=== PATIENT | female | born 1955 | race Two or more races ===

== ENCOUNTER 2024-02-04 18:36 | Emergency (ER) | payer MEDICAID, OTHER ==
[~2024-02-04] VITALS: Ht 157.5 cm; Wt 76.6 kg
[~2024-02-04 18:36] MED LIST: CALC-332 OR; FLUO20CA19 OR; LEV75T OR; NORVASC PO; TRIA37.587 PO
[2024-02-04 19:16] LABS: Basophils # (auto) 0 10 ^3/uL (0-0.2); Basophils % (auto) 0.2 % (0.0-2.0); Eosinophils # (auto) 0.1 10 ^3/uL (0-0.8); Eosinophils % (auto) 0.8 % (0.0-7.0); Hematocrit 46.2 % (36.0-46.0); Hemoglobin 15.7 g/dL (12.2-16.2); Lymphocytes # (auto) 1.1 10 ^3/uL (0.4-5.4); Lymphocytes % (auto) 8.2 % (10.0-50.0); Mean Corpuscular Hemoglobin 30.5 pg (28.0-32.0); Mean Corpuscular Volume 89.6 fL (80.0-100.0); Monocytes # (auto) 0.7 10 ^3/uL (0-1.3); Monocytes % (auto) 5.2 % (0.0-12.0); Neutrophils # (auto) 11.5 10 ^3/uL (1.6-8.6); Neutrophils % (auto) 85.6 % (37.0-80.0); Platelet Count (auto) 321 10^3/uL (140-450); Red Blood Cells 5.15 10^6/uL (4.0-5.20); Red Cell Distribution Width 13.5 % (11.8-14.3); White Blood Cell 13.5 10^3/uL (4.4-10.8)
[2024-02-04 19:17] LABS: Urine Bacteria FEW /hpf (None Seen); Urine Blood 3+ /uL (Negative); Urine Clarity Ex.Turbid (Clear); Urine Color Red (Yellow); Urine Protein, UAD 2+ (Negative); Urine Specific Gravity 1.021 (1.001-1.035); Urine Urobilinogen Normal (Negative); Urine WBC 2 /hpf (0 - 5)
[2024-02-04] MEDS: SODIUM CHLORIDE 0.9% 1,000 ML IV ONE (19:18)
[2024-02-04] MEDS: ONDANSETRON HCL 4 MG/2 ML VIAL IV ONE (19:22)
--- NOTE | 2024-02-04 19:22 | ED.PDOC ---
General HPI Comments A 68 year old female presents to the ED with a chief complaint of painful urination onset today about 4 hours ago. Patient states she has been experiencing cough, chills, body aches, nausea, vomiting, diarrhea for the past 5 days. She noticed painful urination today with a burning sensation as well as blood in urine. Patient has a past medical history of HTN, depression, thyroid. Denies fever, back pain, chest pain, shortness of breath, headache. No other symptoms or modifying factors present at this time. Chief Complaint: Urinary Time Seen by MD: 18:55 Primary Care Provider: NONE Reviewed notes: Medications, Allergies Allergies: Coded Allergies: NO KNOWN ALLERGIES (Unverified , 10/28/11) Home Meds Reported Medications Levothyroxine Sodium (Synthroid) 75 Mcg Tab, 75 MCG OR QAM 10/28/11 [Norvasc] No Conflict Check, 2.5 MG PO DAILY 10/28/11 Fluoxetine Hcl (Pmdd) (Fluoxetine) 20 Mg Cap, 20 MG OR DAILY 10/28/11 Hydrochlorothiazide W/Triamter (Dyazide 37.5/25MG) 1 Cap Cp, 1 CAP PO DAILY 10/28/11 Calcium Carbonate-Vitamin D (CALCIUM 500+D) 500 + Tab, 500 + OR BID 10/28/11 Information Source: Patient Mode of Arrival: Ambulatory Severity: Moderate Timing: Hours Duration: Since onset Prehospital treatment: None Symptoms: Dysuria, Hematuria History of: None Location: None associated signs and symptoms: Nausea, Vomiting, Dysuria, Hematuria Past Medical History PAST MEDICAL HISTORY: Depression, HTN, Thyroid Surgical History: , Hysterectomy 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 MANAGER Hx Family History Family History: No family hx of DM, No family hx of Heart julianne Social History Smoker: Non-Smoker Alcohol: Denies ETOH Use Drugs: Denies Drug Use Lives In: Home Constitutional: reports: chills, others (body aches ); denies: diaphoresis, fatigue, fever, malaise, sweats, weakness EENTM: denies: blurred vision, double vision, ear bleeding, ear discharge, ear drainage, ear pain, ear ringing, eye pain, eye redness, hearing loss, mouth pain, mouth swelling, nasal discharge, nose bleeding, nose congestion, nose pain, photophobia, tearing, throat pain, throat swelling, voice changes, others Respiratory: reports: cough; denies: hemoptysis, orthopnea, SOB at rest, shortness of breath, SOB with excertion, stridor, wheezing, others Cardiovascular: denies: chest pain, dizzy spells, diaphoresis, Dyspnea on exertion, edema, irregular heart beat, left arm pain, lightheadedness, palpitations, PND, syncope, others Gastrointestinal: reports: diarrhea, nausea, vomiting; denies: abdomen distended, abdominal pain, blood streaked bowels, constipated, dysphagia, difficulty swallowing, hematemesis, melena, poor appetite, poor fluid intake, rectal bleeding, rectal pain, others Genitourinary: reports: burning, dysuria, hematuria; denies: abnormal vagina bleeding, dyspareunia, flank pain, frequency, incontinence, pain, , vagina discharge, urgency, others Neurological: denies: dizziness, fainting, headache, left sided numbness, left sided weakness, numbness, paresthesia, pre-existing deficit, right sided numbness, right sided weakness, seizure, speech problems, tingling, tremors, weakness, others Musculoskeletal: denies: back pain, gout, joint pain, joint swelling, muscle pain, muscle stiffness, neck pain, others Integumetry: denies: bruises, change in color, change in hair/nails, dryness, laceration, lesions, lumps, rash, wounds, others Allergic/Immunocompromised: denies: Difficulty Healing, Frequent Infections, Hives, Itching, others Hematologic/Lymphatic: denies: anemia, blood clots, easy bleeding, easy bruising, swollen glands, others Endocrine: denies: excessive hunger, excessive sweating, excessive thirst, excessive urination, flushing, intolerance to cold, intolerance to heat, unexplained weight gain, unexplained weight loss, others Psychiatric: denies: anxiety, bipolar disorder, depression, hopeless, panic disorder, schizophrenia, sleepless, suicidal, others All Other Systems: Reviewed and Negative Physical Exam General Appearance: No Apparent Distress, Normal HEENT: Normal ENT Inspection, Pharynx Normal, TMs Normal Neck: Full Range of Motion, Non-Tender, Normal, Normal Inspection Respiratory: Chest Non-Tender, Lungs Clear, No Accessory Muscle Use, No Respiratory Distress, Normal Breath Sounds Cardiovascular: No Edema, No JVD, No Murmur, No Gallop, Normal Peripheral Pulses, Regular Rate/Rhythm Breast Exam: Deferred Gastrointestinal: No Organomegaly, Non Tender, No Pulsatile Mass, Normal Bowel Sounds, Soft Genitalia: Deferred Pelvic: Deferred Rectal: Deferred Extremities: No calf tenderness, Normal capillary refill, Normal inspection, Normal range of motion, Non-tender, No pedal edema Musculoskeletal : Apperance: Normal Neurologic: Alert, metal caster II-XII nml as Tested, No Motor Deficits, Normal Affect, Normal Mood, No Sensory Deficits Cerebellar Function: Normal Reflexes: Normal Skin: Dry, Normal Color, Warm Lymphatic: No Adenopathy Was a procedure done? Was a procedure done?: No Differential Diagnosis Kidney stone (Female): N/A Kidney stone (Male): N/A Penile/Scrotal: N/A Urinary Problem (Male): N/A Urinary Problem (Female): Pyelonephritis, Urinary retention, Urolithiasis, UTI X-Ray, Labs, Meds, VS Vital Signs Date Time Temp Pulse Resp B/P (MAP) Pulse Ox O2 Delivery O2 Flow Rate FiO2 02/04/24 20:04 71 16 150/60 (90) 96 02/04/24 20:04 71 16 96 02/04/24 20:03 71 16 150/60 02/04/24 19:26 96 18 168/59 02/04/24 19:18 96 18 168/59 (95) 96 02/04/24 18:50 98.6 96 20 176/92 (120) 96 Lab Test 02/04/24 18:56 02/04/24 18:46 Range/Units White Blood Count 13.5 H 4.4-10.8 10^3/uL Red Blood Count 5.15 4.0-5.20 10^6/uL Hemoglobin 15.7 12.2-16.2 g/dL Hematocrit 46.2 H 36.0-46.0 % Mean Corpuscular Volume 89.6 80.0-100.0 fL Mean Corpuscular Hemoglobin 30.5 28.0-32.0 pg Mean Corpuscular Hemoglobin Concent 34.0 32.0-36.0 g/dL Red Cell Distribution Width 13.5 11.8-14.3 % Platelet Count 321 140-450 10^3/uL Mean Platelet Volume 7.5 6.9-10.8 fL Neutrophils (%) (Auto) 85.6 H 37.0-80.0 % Lymphocytes (%) (Auto) 8.2 L 10.0-50.0 % Monocytes (%) (Auto) 5.2 0.0-12.0 % Eosinophils (%) (Auto) 0.8 0.0-7.0 % Basophils (%) (Auto) 0.2 0.0-2.0 % Neutrophils # (Auto) 11.5 H 1.6-8.6 10 ^3/uL Lymphocytes # (Auto) 1.1 0.4-5.4 10 ^3/uL Monocytes # (Auto) 0.7 0-1.3 10 ^3/uL Eosinophils # (Auto) 0.1 0-0.8 10 ^3/uL Basophils # (Auto) 0 0-0.2 10 ^3/uL Nucleated Red Blood Cells 0.0 % Sodium Level 139 136-145 mmol/L Potassium Level 3.4 L 3.5-5.1 mmol/L Chloride Level 103 98-107 mmol/L Carbon Dioxide Level 27 20-31 mmol/L Anion Gap 9 5-15 Blood Urea Nitrogen 9 9-23 mg/dL Creatinine 0.73 0.550-1.02 mg/dL Glomerular Filtration Rate Calc 91 >90 mL/min BUN/Creatinine Ratio 12.3 10.0-20.0 Serum Glucose 162 H 74-106 mg/dL Calcium Level 9.6 8.7-10.4 mg/dL Urine Color Red H Yellow Urine Clarity Ex.turbid Clear Urine pH 6.0 5.0-9.0 Urine Specific [place] 1.021 1.001-1.035 Urine Protein 2+ H Negative Urine Ketones Trace Negative Urine Blood 3+ H Negative /uL Urine Nitrite Negative Negative Urine Bilirubin Negative Negative Urine Urobilinogen Normal Negative mg/dL Urine Leukocyte Esterase 3+ Negative /uL Urine RBC 6 0 - 4 /hpf Urine WBC 2 0 - 5 /hpf Urine Squamous Epithelial Cells None seen <5 /hpf Urine Bacteria Few H None Seen /hpf Urine Glucose Normal Normal mg/dL Current Medications Medications (Trade) Dose Ordered Sig/Jaguar Route Start Time Stop Time Status Last Admin Sodium Chloride 1,000 ml @ 1,000 mls/hr Q1H ONCE IV 02/04/24 19:00 02/04/24 19:59 DC 02/04/24 19:18 Ondansetron HCl (Zofran) 4 mg ONCE ONCE IV 02/04/24 19:00 02/04/24 19:01 DC 02/04/24 19:22 Morphine Sulfate 4 mg ONCE ONCE IV 02/04/24 19:00 02/04/24 19:01 DC 02/04/24 19:26 Ceftriaxone Sodium 50 ml @ 100 mls/hr ONCE ONCE IV 02/04/24 20:15 02/04/24 20:44 DC 02/04/24 20:18 Time of 1ST Reevaluation: 19:25 Reevaluation 1ST: Unchanged Patient Education/Counseling: Diagnosis, Treatment, Prognosis Family Education/Counseling: No Family Present Additional Information I reviewed the following notes from patient's past medical encounters: The following tests were ordered, and results were reviewed by me:CBC, CMP, UA I discussed treatment and results with medical personnel and: patient Departure 1 Departure Time of Disposition: 21:42 (Patient presented with abdominal pain that was concerning for possible appendicits, gastritis, cholecystitis, colitis, gastroenteritis, or orther possible surgical emergency. Data: 1. I ordered and reviewed the result of at least 3 labs including a CBC, BMP, and Urinalysis. 2. I independently interpreted the following tests: CT Abdoment and Pelvis is conc erning for uncomplicated diverticulitis .Risk:This patient has a high risk of morbidity due to further diagnostic testing or treatment and may suffer from an acute abdominal process disorder. Fortunately workup reveals uncomplicated diverticulitis and patient can be safely discharged to home with outpatient follow up.) Impression: Primary Impression: Diverticulitis Disposition: HOME / SELF CARE / HOMELESS Condition: Stable Additional Instructions: You have diverticulitis. This is an infection of your intestines. You were prescribed antibiotics. Please take as directed. For pain you can take: 8am: Tylenol 1000mg Noon: Ibuprofen 400mg with food 4pm: Tylenol 1000mg 8pm: Ibuprofen 400mg with food. You should follow up with your doctor within one week. Please call for an appointment. If your symptoms worsen or you have any other concerns then please return to the ER. e-Prescriptions Amoxicillin & Pot Clavulanate (AUGMENTIN TABLET) 875 Mg Tb 875 MG PO BID for 5 Days, #10 TAB Prov: CHI KRISHNA MD 02/04/24 Discharged With: Self Critical Care Note Critical Care Time?: No Stability Stability form required: No I personally scribed for CHI KRISHNA MD ([email or web address]) on 02/04/24 at 19:22. Electronically submitted by Dilcia Whiteside ([email or web address]). I personally scribed for CHI KRISHNA MD ([email or web address]) on 02/04/24 at 19:46. Electronically submitted by Dilcia Whiteside ([email or web address]). CHI KRISHNA MD Feb 04, 2024 19:22
[2024-02-04] MEDS: MORPHINE SULFATE 4 MG/ML SYR/VIAL IV ONE (19:26)
[2024-02-04 19:28] LABS: Chloride 103 mmol/L (98-107); Sodium 139 mmol/L (136-145)
[2024-02-04 19:29] LABS: Anion Gap 9 (5-15); Calcium 9.6 mg/dL (8.7-10.4); Carbon Dioxide 27 mmol/L (20-31)
[2024-02-04 19:34] LABS: BUN/Creatinine Ratio 12.3 (10.0-20.0)
[2024-02-04 19:42] LABS: Blood Urea Nitrogen 9 mg/dL (9-23); Glucose 162 mg/dL (74-106); Potassium 3.4 mmol/L (3.5-5.1)
[2024-02-04 20:04] VITALS: BP 150/60; PULSE 71; RESP 16; O2SAT 96
[2024-02-04] MEDS: cefTRIAXone 1GM/50ML D5W 50 ML IV ONE (20:18)
--- NOTE | 2024-02-04 21:33 | DVH ---
Exam: CT CT AB PEL WO CON-NO ORAL OR IV History: left flank pain and hematuria Comparison Study: None available at time of dictation. TECHNIQUE: Multidetector CT of the abdomen was performed from lung bases to pubic symphysis. Imaging was performed without IV contrast. Axial, coronal and sagittal multiplanar reformats were obtained fr om the axial data set by the technologist. Radiation Dose Information: CT Dose: CTDI volume is 11.21 mGy. Dose-length product is 621.32 mGy*cm FINDINGS: Evaluation of solid organs is limited due to lack of intravenous contrast use. Findings: Lung Bases: No acute or significant lung base finding. Normal heart size. No pleural or pericardial effusion. Liver: The liver is normal in size. No focal lesions. Gallbladder and Biliary Tree: Gallbladder has been surgically removed. Spleen: Unremarkable Pancreas: The pancreas is grossly normal in appearance. Adrenal Glands: Unremarkable Kidneys: Kidneys are grossly normal without calculi or hydronephrosis. Bladder: Grossly unremarkable for degree of distention. Bowel: The stomach is grossly normal in appearance. Sigmoid diverticulosis with no free air or free f luid however there is some stranding in the sigmoid fat suggesting diverticulitis.. The appendix is not visualized; however, no secondary findings of acute appendicitis identified. Ascites: Absent Lymphadenopathy: No mesenteric, retroperitoneal or periportal lymphadenopathy. Abdominal Wall and Mesentery: Unremarkable. Vasculature: The visualized abdominal aorta is normal in size and caliber. Evaluation of abdominal a nd pelvic vessels is limited due to lack of intravenous contrast. Pelvic Organs: Surgical clips right adnexa. Musculoskeletal: No aggressive focal bony lesions, acute fractures or dislocation. Soft tissues: Unremarkable IMPRESSION: 1. Sigmoid diverticulitis with no free air or free fluid. No abscess present at this time. 2. Surgical clips in the right adnexa. 3. Gallbladder has been surgically removed. Radiation optimization: All CT scans at this facility use at least one of these dose optimization sharan hniques: automated exposure control mA and/or kV adjustment per patient size (includes targeted exam s where dose is matched to clinical indication) or iterative reconstruction.
[2024-02-04] MEDS ORDERED: AUG875T PO (21:50)
== END 2024-02-04 23:01 | disposition home or self-care (01) ==
LOC: ER 18:36
DX: K57.32 Diverticulitis of large intestine without perforation or abscess without bleeding (principal); R05.9 Cough, unspecified; I10 Essential (primary) hypertension; F32.A Depression, unspecified; Z90.710 Acquired absence of both cervix and uterus; Z98.890 Other specified postprocedural states; Z79.899 Other long term (current) drug therapy
CPT/HCPCS: 36415; 74176; 80048; 81001; 85025; 96361; 96365; 96375; 99285; J0696; J2270; J2405; J7030

== ENCOUNTER 2024-10-17 14:22 | Emergency (ER) | payer MEDICAID, OTHER ==
[~2024-10-17] VITALS: Ht 152.4 cm; Wt 76.7 kg
[~2024-10-17 14:22] MED LIST changes: +AUG875T PO
[2024-10-17 14:24] VITALS: TEMP 98.8
[2024-10-17 14:56] VITALS: BP 155/79; PULSE 78; RESP 18; O2SAT 95
--- NOTE | 2024-10-17 15:08 | ED.PDOC ---
Eye-HPI HPI Comments 69-year-old female with PMHx TSH presents with a chief complaint of eyelid swelling bilaterally. Patients upper eyelids are both swollen and her conjunctiva are red in color. Patient has more swelling to the left upper eyelid compared to the right eyelid. Patient is able to see clearly and denies any changes to her vision. Patient reports that swelling came on spontaneously and denies any precipitating factors. Chief Complaint: Eye Problem Time Seen by MD: 14:52 Primary Care Provider: NONE Reviewed Notes: Medications, Allergies Allergies: Coded Allergies: NO KNOWN ALLERGIES (Unverified , 10/28/11) Home Meds Active Scripts Amoxicillin & Pot Clavulanate (AUGMENTIN TABLET) 875 Mg Tb, 875 MG PO BID for 5 Days, #10 TAB Prov:CHI KRISHNA MD 02/04/24 Reported Medications Levothyroxine Sodium (Synthroid) 75 Mcg Tab, 75 MCG OR QAM 10/28/11 [Norvasc] No Conflict Check, 2.5 MG PO DAILY 10/28/11 Fluoxetine Hcl (Pmdd) (Fluoxetine) 20 Mg Cap, 20 MG OR DAILY 10/28/11 Hydrochlorothiazide W/Triamter (Dyazide 37.5/25MG) 1 Cap Cp, 1 CAP PO DAILY 10/28/11 Calcium Carbonate-Vitamin D (CALCIUM 500+D) 500 + Tab, 500 + OR BID 10/28/11 Information Source: Patient Mode of Arrival: Ambulatory Timing: Days Duration: Since onset Prehospital treatment: None Quality: Pain Eye Location: Left, Upper Lids: Red, Swelling Conjunctiva: Normal Cornea: Normal Pupils: Normal Past Medical History PAST MEDICAL HISTORY: Depression, HTN, Thyroid Surgical History: , Hysterectomy 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 Family History Family History: No family hx of DM, No family hx of Heart julianne Social History Smoker: Non-Smoker Alcohol: Denies ETOH Use Drugs: Denies Drug Use Lives In: Home Constitutional: denies: chills, diaphoresis, fatigue, fever, malaise, sweats, weakness, others EENTM: reports: eye pain, eye redness; denies: blurred vision, double vision, ear bleeding, ear discharge, ear drainage, ear pain, ear ringing, hearing loss, mouth pain, mouth swelling, nasal discharge, nose bleeding, nose congestion, nose pain, photophobia, tearing, throat pain, throat swelling, voice changes, others Respiratory: denies: cough, hemoptysis, orthopnea, SOB at rest, shortness of breath, SOB with excertion, stridor, wheezing, others Cardiovascular: denies: chest pain, dizzy spells, diaphoresis, Dyspnea on exertion, edema, irregular heart beat, left arm pain, lightheadedness, palpitations, PND, syncope, others Gastrointestinal: denies: abdomen distended, abdominal pain, blood streaked bowels, constipated, diarrhea, dysphagia, difficulty swallowing, hematemesis, melena, nausea, poor appetite, poor fluid intake, rectal bleeding, rectal pain, vomiting, others Genitourinary: denies: abnormal vagina bleeding, burning, dyspareunia, dysuria, flank pain, frequency, hematuria, incontinence, pain, , vagina discharge, urgency, others Neurological: denies: dizziness, fainting, headache, left sided numbness, left sided weakness, numbness, paresthesia, pre-existing deficit, right sided numbness, right sided weakness, seizure, speech problems, tingling, tremors, weakness, others Musculoskeletal: denies: back pain, gout, joint pain, joint swelling, muscle pain, muscle stiffness, neck pain, others Integumetry: denies: bruises, change in color, change in hair/nails, dryness, laceration, lesions, lumps, rash, wounds, others Allergic/Immunocompromised: denies: Difficulty Healing, Frequent Infections, Hives, Itching, others Hematologic/Lymphatic: denies: anemia, blood clots, easy bleeding, easy bruising, swollen glands, others Endocrine: denies: excessive hunger, excessive sweating, excessive thirst, excessive urination, flushing, intolerance to cold, intolerance to heat, unexplained weight gain, unexplained weight loss, others Psychiatric: denies: anxiety, bipolar disorder, depression, hopeless, panic disorder, schizophrenia, sleepless, suicidal, others All Other Systems: Reviewed and Negative Physical Exam General Appearance: No Apparent Distress, Obese HEENT: Normal ENT Inspection, PERRL/EOMI, Pharynx Normal, TMs Normal, Other (With bilateral conjunctivitis and stye to the left side upper lid) Neck: Full Range of Motion, Non-Tender, Normal, Normal Inspection Respiratory: Chest Non-Tender, Lungs Clear, No Accessory Muscle Use, No Respiratory Distress, Normal Breath Sounds Cardiovascular: No Edema, No JVD, No Murmur, No Gallop, Normal Peripheral Pulses, Regular Rate/Rhythm Breast Exam: Deferred Gastrointestinal: No Organomegaly, Non Tender, No Pulsatile Mass, Normal Bowel Sounds, Soft Genitalia: Deferred Pelvic: Deferred Rectal: Deferred Extremities: No calf tenderness, Normal capillary refill, Normal inspection, Normal range of motion, Non-tender, No pedal edema Musculoskeletal : Apperance: Normal Neurologic: Alert, consulting manager II-XII nml as Tested, No Motor Deficits, Normal Affect, Normal Mood, No Sensory Deficits Cerebellar Function: Normal Reflexes: Normal Skin: Dry, Normal Color, Warm Peripheral Pulses: 1+ carotid (R), 1+ carotid (L) Lymphatic: No Adenopathy Was a procedure done? Was a procedure done?: No EENT DIFF Eye: Conjunctivitis, Bacterial, Hordeolum (stye) Ear: N/A Nose: N/A Mouth: N/A Sore Throat: N/A X-Ray, Labs, Meds, VS Vital Signs Date Time Temp Pulse Resp B/P (MAP) Pulse Ox O2 Delivery O2 Flow Rate FiO2 10/17/24 14:56 75 18 155/79 (104) 95 10/17/24 14:56 78 18 95 Room Air 10/17/24 14:24 98.8 77 15 151/95 95 98.8 X-Ray, Labs, Meds, VS Comment Course in the [employer] eventful patient came in with bilateral conjunctivitis in his stye to the left upper lid Patient will be treated adequately and discharged home Time of 1ST Reevaluation: 15:22 Reevaluation 1ST: Unchanged Reevaluation 2ND: Unchanged Consultation: PCP Patient Education/Counseling: Diagnosis, Treatment, Need For Follow Up Family Education/Counseling: Diagnosis, Treatment, Need For Follow Up SEPSIS Sepsis Screen Date sepsis recognized/suspect: Oct 17, 2024 Time Sepsis recognized/suspect: 1425 Recent Procedure: No On Antibiotic Therapy: No (N) Respiratory Rate >20: No (T) Heart Rate >90: No Temp<36 C (96.8 F) or >38.3 C: No SBP <90 or MAP <65 mmHG: No New Acute Mental Status Change: No Is the patient on CPAP, BIPAP,: No Vital Signs Date Time Temp Pulse Resp B/P (MAP) Pulse Ox O2 Delivery O2 Flow Rate FiO2 10/17/24 14:56 75 18 155/79 (104) 95 10/17/24 14:56 78 18 95 Room Air 10/17/24 14:24 98.8 77 15 151/95 95 98.8 Departure 1 Departure Time of Disposition: 15:12 Impression: Primary Impression: Conjunctivitis Qualified Codes: H10.33 - Unspecified acute conjunctivitis, bilateral Additional Impression: Hordeolum externum left upper eyelid Disposition: HOME / SELF CARE / HOMELESS Condition: Fair Additional Instructions: Discharge Note: Drink plenty of fluids. Follow up with your primary Dr. Take your prescriptions as ordered. If your condition becomes worse call and follow up with your primary DrBonnie for instructions or return to the ER if needed. Thank you for visiting [facility]. e-Prescriptions Cefdinir (Cefdinir) 300 Mg Cap 1 CAP PO BID for 7 Days, #14 CAP Prov: ELIZABETH OQUENDO MD 10/17/24 [id number]-Nzekbtaw (MAXITROL 0.1% OPTHALMIC SUSPENSION) [address] 1 DROP OP BID for 5 Days, #5 CC Prov: ELIZABETH OQUENDO MD 10/17/24 Discharged With: Self Critical Care Note Critical Care Time?: No Stability Stability form required: No Heart Score Heart Score: Heart Score Response (Comments) Value History N/A 0 EKG N/A 0 Age >65 2 Risk Factors >3 or Hx ASHD 2 Troponin N/A 0 Total 4 I personally scribed for ELIZABETH OQUENDO MD ([email or web address]) on 10/17/24 at 15:08. Electronically submitted by Grant Greer ([email or web address]). ELIZABETH OQUENDO MD Oct 17, 2024 15:08
[2024-10-17] MEDS ORDERED: MAX5OPS OP (15:17)
[2024-10-17] MEDS ORDERED: CEFD300C2 PO (15:17)
== END 2024-10-17 15:28 | disposition home or self-care (01) ==
LOC: ER 14:22
DX: H00.014 Hordeolum externum left upper eyelid (principal); H10.9 Unspecified conjunctivitis; I10 Essential (primary) hypertension; E03.9 Hypothyroidism, unspecified; F32.A Depression, unspecified; Z79.899 Other long term (current) drug therapy; Z90.710 Acquired absence of both cervix and uterus; Z98.890 Other specified postprocedural states

== ENCOUNTER 2024-10-21 12:27 | Inpatient (IN) | payer OTHER ==
[~2024-10-21] VITALS: Ht 157.5 cm; Wt 78.0 kg
[~2024-10-21 12:27] MED LIST changes: +CEFD300C2 PO; +MAX5OPS OP
--- NOTE | 2024-10-21 12:43 | ECG ---
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
[2024-10-21 13:08] LABS: Hematocrit 44.5 % (36.0-46.0); Hemoglobin 15.2 g/dL (12.2-16.2); Mean Corpuscular Hemoglobin 30.3 pg (28.0-32.0); Mean Corpuscular Volume 88.7 fL (80.0-100.0); Nucleated Red Blood Cells % 0.1 %
[2024-10-21 13:16] LABS: Chloride 106 mmol/L (98-107); Potassium 3.7 mmol/L (3.5-5.1); Sodium 143 mmol/L (136-145)
[2024-10-21 13:18] LABS: Anion Gap 8 (5-15); Calcium 9.6 mg/dL (8.7-10.4); Carbon Dioxide 29 mmol/L (20-31)
--- NOTE | 2024-10-21 13:21 | DVH ---
INDICATION: htn TECHNIQUE: Frontal view of the chest. COMPARISON: None FINDINGS: . The heart and mediastinal contours are grossly unremarkable. There is no evidence of pleural disea se. The lungs are clear. The bony structures of the chest are intact without fracture. IMPRESSION: 1. No evidence of acute disease.
--- NOTE | 2024-10-21 13:21 | DVH ---
EXAM: CT HEAD WITHOUT CONTRAST INDICATION: htn TECHNIQUE: CT images of the head were obtained without administration of IV contrast. CT scans at [facility] use dose modulation, iterative reconstruction, and/or weight based dosing when appropriate to reduce radiation dose to as low as reasonably achievable. COMPARISON: None FINDINGS: PARENCHYMA: No acute hemorrhage. There is no mass effect, midline shift, or herniation. There is pres ervation of the boss white differentiation. VENTRICLES: No hydrocephalus. EXTRA-AXIAL SPACES: No extra-axial fluid collections. OTHER: The bony structures are intact. Visualized portions of the paranasal sinuses and mastoid air cells are clear. IMPRESSION: 1. No CT evidence of an acute intracranial abnormality.
[2024-10-21 13:23] LABS: BUN/Creatinine Ratio 18.7 (10.0-20.0); Blood Urea Nitrogen 14 mg/dL (9-23); Glucose 97 mg/dL (74-106)
--- NOTE | 2024-10-21 15:04 | ED.PDOC ---
History of Present Illness HPI Comments 69 y/o F, with PMHx of HTN, depression, and thyroid disease presents to the ED for CC of hypertension. Patient reports, she had a regular scheduled appointment with her PCP for an eye infection, when she was relayed to the ED d/t elevated SBP in the 200's. Patient relays, that she was taken off her blood pressure medication [id number] ago; has not taken anything for her blood pressure since. Upon arrival to the ED, patient's blood pressure read at 209/76mmHg. Patient denies blurred vision, headache with aura, nausea, or vomiting. No other symptoms or modifying factors are present at this time. Chief Complaint: High Blood Pressure Time Seen by MD: 14:50 Primary Care Provider: NONE Reviewed Notes: Nurses Notes, Medications, Allergies Allergies: Coded Allergies: NO KNOWN ALLERGIES (Unverified , 10/28/11) Home Meds Active Scripts Cefdinir (Cefdinir) 300 Mg Cap, 1 CAP PO BID for 7 Days, #14 CAP Prov:ELIZABETH OQUENDO MD 10/17/24 Xhymakuq-Gehdaj-Nfhgksjx (MAXITROL 0.1% OPTHALMIC SUSPENSION) [address], 1 DROP OP BID for 5 Days, #5 CC Prov:ELIZABETH OQUENDO MD 10/17/24 Amoxicillin & Pot Clavulanate (AUGMENTIN TABLET) 875 Mg Tb, 875 MG PO BID for 5 Days, #10 TAB Prov:CHI KRISHNA MD 02/04/24 Reported Medications Levothyroxine Sodium (Synthroid) 75 Mcg Tab, 75 MCG OR QAM 10/28/11 [Norvas] No Conflict Check, 2.5 MG PO DAILY 10/28/11 Fluoxetine Hcl (Pmdd) (Fluoxetine) 20 Mg Cap, 20 MG OR DAILY 10/28/11 Hydrochlorothiazide W/Triamter (Dyazide 37.5/25MG) 1 Cap Cp, 1 CAP PO DAILY 10/28/11 Calcium Carbonate-Vitamin D (CALCIUM 500+D) 500 + Tab, 500 + OR BID 10/28/11 Information Source: Patient, Relative (Child) Mode of Arrival: Ambulatory Severity: Moderate Timing: Hours Duration: Since onset Prehospital treatment: None Past Medical History PAST MEDICAL HISTORY: Depression, HTN, Thyroid Surgical History: , Hysterectomy 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 Family History Family History: No family hx of DM, No family hx of Heart julianne Social History Smoker: Non-Smoker Alcohol: Denies ETOH Use Drugs: Denies Drug Use Lives In: Home Constitutional: denies: chills, diaphoresis, fatigue, fever, malaise, sweats, weakness, others EENTM: denies: blurred vision, double vision, ear bleeding, ear discharge, ear drainage, ear pain, ear ringing, eye pain, eye redness, hearing loss, mouth pain, mouth swelling, nasal discharge, nose bleeding, nose congestion, nose pain, photophobia, tearing, throat pain, throat swelling, voice changes, others Respiratory: denies: cough, hemoptysis, orthopnea, SOB at rest, shortness of breath, SOB with excertion, stridor, wheezing, others Cardiovascular: denies: chest pain, dizzy spells, diaphoresis, Dyspnea on exe rtion, edema, irregular heart beat, left arm pain, lightheadedness, palpitations, PND, syncope, others Gastrointestinal: denies: abdomen distended, abdominal pain, blood streaked bowels, constipated, diarrhea, dysphagia, difficulty swallowing, hematemesis, melena, nausea, poor appetite, poor fluid intake, rectal bleeding, rectal pain, vomiting, others Genitourinary: denies: abnormal vagina bleeding, burning, dyspareunia, dysuria, flank pain, frequency, hematuria, incontinence, pain, , vagina discharge, urgency, others Neurological: denies: dizziness, fainting, headache, left sided numbness, left sided weakness, numbness, paresthesia, pre-existing deficit, right sided numbness, right sided weakness, seizure, speech problems, tingling, tremors, weakness, others Musculoskeletal: denies: back pain, gout, joint pain, joint swelling, muscle pain, muscle stiffness, neck pain, others Integumetry: denies: bruises, change in color, change in hair/nails, dryness, laceration, lesions, lumps, rash, wounds, others Allergic/Immunocompromised: denies: Difficulty Healing, Frequent Infections, Hives, Itching, others Hematologic/Lymphatic: denies: anemia, blood clots, easy bleeding, easy bruising, swollen glands, others Endocrine: denies: excessive hunger, excessive sweating, excessive thirst, excessive urination, flushing, intolerance to cold, intolerance to heat, unexplained weight gain, unexplained weight loss, others Psychiatric: denies: anxiety, bipolar disorder, depression, hopeless, panic disorder, schizophrenia, sleepless, suicidal, others All Other Systems: Reviewed and Negative Physical Exam General Appearance: No Apparent Distress, Normal HEENT: Normal ENT Inspection, Pharynx Normal Neck: Full Range of Motion, Non-Tender, Normal, Normal Inspection Respiratory: Chest Non-Tender, Lungs Clear, No Accessory Muscle Use, No Respir atory Distress, Normal Breath Sounds Cardiovascular: No Edema, No Murmur, No Gallop, Normal Peripheral Pulses, Regular Rate/Rhythm Breast Exam: Deferred Gastrointestinal: No Organomegaly, Non Tender, No Pulsatile Mass, Normal Bowel Sounds, Soft Genitalia: Deferred Pelvic: Deferred Rectal: Deferred Extremities: No calf tenderness, Normal capillary refill, Normal inspection, Normal range of motion, Non-tender, No pedal edema Musculoskeletal : Apperance: Normal Neurologic: Alert, supervisor compressed yeast II-XII nml as Tested, No Motor Deficits, Normal Affect, Normal Mood, No Sensory Deficits Cerebellar Function: Normal Reflexes: Normal Skin: Dry, Normal Color, Warm Lymphatic: No Adenopathy Was a procedure done? Was a procedure done?: No Differential Dx Considerations may include: HYPERTENSIVE URGENCY, HYPERTENSIVE CRISIS X-Ray, Labs, Meds, VS Vital Signs Date Time Temp Pulse Resp B/P (MAP) Pulse Ox O2 Delivery O2 Flow Rate FiO2 10/21/24 15:16 209/76 10/21/24 14:01 98.4 63 22 209/76 (120) 95 98.4 10/21/24 12:38 62 10/21/24 12:27 98.3 66 16 190/84 96 98.3 Lab Test 10/21/24 13:39 10/21/24 12:55 Range/Units Troponin I High Sensitivity 11 9 </=34 ng/L White Blood Count 7.4 4.4-10.8 10^3/uL Red Blood Count 5.02 4.0-5.20 10^6/uL Hemoglobin 15.2 12.2-16.2 g/dL Hematocrit 44.5 36.0-46.0 % Mean Corpuscular Volume 88.7 80.0-100.0 fL Mean Corpuscular Hemoglobin 30.3 28.0-32.0 pg Mean Corpuscular Hemoglobin Concent 34.1 32.0-36.0 g/dL Red Cell Distribution Width 13.7 11.8-14.3 % Platelet Count 293 140-450 10^3/uL Mean Platelet Volume 7.6 6.9-10.8 fL Neutrophils (%) (Auto) 47.6 37.0-80.0 % Lymphocytes (%) (Auto) 39.8 10.0-50.0 % Monocytes (%) (Auto) 8.6 0.0-12.0 % Eosinophils (%) (Auto) 3.1 0.0-7.0 % Basophils (%) (Auto) 0.9 0.0-2.0 % Neutrophils # (Auto) 3.5 1.6-8.6 10 ^3/uL Lymphocytes # (Auto) 2.9 0.4-5.4 10 ^3/uL Monocytes # (Auto) 0.6 0-1.3 10 ^3/uL Eosinophils # (Auto) 0.2 0-0.8 10 ^3/uL Basophils # (Auto) 0.1 0-0.2 10 ^3/uL Nucleated Red Blood Cells 0.1 % Sodium Level 143 136-145 mmol/L Potassium Level 3.7 3.5-5.1 mmol/L Chloride Level 106 98-107 mmol/L Carbon Dioxide Level 29 20-31 mmol/L Anion Gap 8 5-15 Blood Urea Nitrogen 14 9-23 mg/dL Creatinine 0.75 0.550-1.02 mg/dL Glomerular Filtration Rate Calc 87 >90 mL/min BUN/Creatinine Ratio 18.7 10.0-20.0 Serum Glucose 97 74-106 mg/dL Calcium Level 9.6 8.7-10.4 mg/dL Current Medications Medications (Trade) Dose Ordered Sig/Jaguar Route Start Time Stop Time Status Last Admin Hydralazine HCl (Apresoline Injection) 20 mg ONCE ONCE IV 10/21/24 15:00 10/21/24 15:01 DC 10/21/24 15:[address] [address] Ph: [phone] DIAGNOSTIC IMAGING Diagnostic Imaging Report : [id number] Signed PATIENT: JOSIAH HURTADOSHUCT: [id number] UNIT: [id number] : 1955 LOC: ER ROOM / BED: / AGE / SEX: 69 / F ADM STATUS: REG ER SERVICE 1241 ORDERING PHYSICIAN: HCI KRISHNA MD PROCEDURE(s): CXRP - CHEST PORTABLE REASON: htn ORDER NUMBER(s): [id number], ACCESSION NUMBER(s): [id number] INDICATION: htn TECHNIQUE: Frontal view of the chest. COMPARISON: None FINDINGS: . The heart and mediastinal contours are grossly unremarkable. There is no evidence of pleural disease. The lungs are clear. The bony structures of the chest are intact without fracture. IMPRESSION: 1. No evidence of acute disease. ATED BY: HEATH BAL MD DICTATED DATE/TIME: 10/21/241318 SIGNED BY: HEATH BAL MD SIGNED DATE/TIME: 10/21/241318 CC: [place] [id number] Ph: [phone] DIAGNOSTIC IMAGING Diagnostic Imaging Report : [id number] Signed PATIENT: AMY HURTADOCT: [id number] UNIT: [id number] : 1955 LOC: ER ROOM / BED: / AGE / SEX: 69 / F ADM STATUS: REG ER SERVICE 1241 ORDERING PHYSICIAN: CHI KRISHNA MD PROCEDURE(s): HWOCT - HEAD WITHOUT CONTRAST REASON: htn ORDER NUMBER(s): [id number], ACCESSION NUMBER(s): [id number] EXAM: CT HEAD WITHOUT CONTRAST INDICATION: htn TECHNIQUE: CT images of the head were obtained without administration of IV contrast. CT scans at this facility use dose modulation, iterative reconstruction, and/or weight based dosing when appropriate to reduce radiation dose to as low as reasonably achievable. COMPARISON: None FINDINGS: PARENCHYMA: No acute hemorrhage. There is no mass effect, midline shift, or herniation. There is preservation of the boss white differentiation. VENTRICLES: No hydrocephalus. EXTRA-AXIAL SPACES: No extra-axial fluid collections. OTHER: The bony structures are intact. Visualized portions of the paranasal sinuses and mastoid air cells are clear. IMPRESSION: 1. No CT evidence of an acute intracranial abnormality. ATED BY: HEATH BAL MD DICTATED DATE/TIME: 10/21/241318 SIGNED BY: HEATH BAL MD SIGNED DATE/TIME: 10/21/241318 CC: Time of 1ST Reevaluation: 15:10 Reevaluation 1ST: Unchanged Patient Education/Counseling: Diagnosis, Treatment Family Education/Counseling: Diagnosis, Treatment SEPSIS Sepsis Screen Date sepsis recognized/suspect: Oct 21, 2024 Time Sepsis recognized/suspect: 1226 Recent Procedure: No On Antibiotic Therapy: No Respiratory Rate >20: No Heart Rate >90: No Temp<36 C (96.8 F) or >38.3 C: No SBP <90 or MAP <65 mmHG: No New Acute Mental Status Change: No Is the patient on CPAP, BIPAP,: No Physician Orders Urinalysis (10/21/24 12:41) Chest Portable (10/21/24 12:41) Head Without Contrast (10/21/24 12:41) Troponin-I Hs (10/21/24 15:41) Electrocardigram (10/21/24 13:41) Electrocardigram (10/21/24 15:41) Vital Signs Date Time Temp Pulse Resp B/P (MAP) Pulse Ox O2 Delivery O2 Flow Rate FiO2 10/21/24 15:16 209/76 10/21/24 14:01 98.4 63 22 209/76 (120) 95 98.4 10/21/24 12:38 62 10/21/24 12:27 98.3 66 16 190/84 96 98.3 Laboratory Tests Test 10/21/24 12:55 White Blood Count 7.4 10^3/uL (4.4-10.8) Medications Medications Dose Ordered Sig/Jaguar Route Start Time Stop Time Status Last Admin Dose Admin Hydralazine HCl 20 mg ONCE ONCE IV 10/21/24 15:00 10/21/24 15:01 DC 10/21/24 15:16 Departure 1 Departure Time of Disposition: 15:59 (Patient presented with hypertension and symptoms concerning for hypertensive emergency. Patient is receiving iv blood pressure medications requiring intensive monitoring. Data: 1. I ordered and reviewed the result of at least 3 labs including a CBC, BMP, and Urinalysis. 2. I independently interpreted the following tests: CT Brain: Which appears benign. EKG which is Normal Sinus RhythmRisk:This patient has a high risk of morbidity due to further diagnostic testing or treatment and may suffer from an acute cardiac disorder. Workup reveals hypertensive emergency and patient should be a dmitted for further workup. and possible expert consultation. ) Impression: Primary Impression: Hypertensive emergency Disposition: ADMITTED INPATIENT Admit to: Tele Condition: Guarded Critical Care Note Critical Care Time?: Yes Critical care comment: Hypertensive emergency Authorized and Performed by: Chi Krishna MD Total critical care time: Approximately 39 minutes Due to a high probability of clinically significant, life threatening deterioration, the patient required my highest level of preparedness to intervene emergently and I personally spent this critical care time directly and personally managing the patient. This critical care time included obtaining a history; examining the patient; pulse oximetry; ordering and review of studies; arranging urgent treatment with development of a management plan; evaluation of patient's response to treatment; frequent reassessment; and, discussions with other providers. This critical care time was performed to assess and manage the high probability of imminent, life-threatening deterioration that could result in multi-organ failure. It was exclusive of separately billable procedures and treating other patients and teaching time. Please see my other sections and the rest of the note for further information on patient assessment and treatment. Stability Stability form required: No Heart Score Heart Score: Heart Score Response (Comments) Value History N/A 0 EKG N/A 0 Age N/A 0 Risk Factors N/A 0 Troponin N/A 0 Total 0 I personally scribed for CHI KRISHNA MD ([email or web address]) on 10/21/24 at 15:04. Electronically submitted by Erika Ibrahim ([email or web address]). I personally scribed for CHI KRISHNA MD ([email or web address]) on 10/21/24 at 15:19. Electronically submitted by Erika Ibrahim ([email or web address]). I personally scribed for CHI KRISHNA MD ([email or web address]) on 10/21/24 at 15:20. Electronically submitted by Erika Ibrahim ([email or web address]). I personally scribed for CHI KRISHNA MD ([email or web address]) on 10/21/24 at 15:32. Electronically submitted by Erika Ibrahim ([email or web address]). CHI KRISHNA MD Oct 21, 2024 15:04
[2024-10-21] MEDS: hydrALAZINE HCL 20 MG/ML VL IV ONE (15:16)
[2024-10-22] VITALS (8 sets, daily range): BP systolic 104–143; BP diastolic 36–72; PULSE 68–93; RESP 16–22; TEMP 98.4–99.5; O2SAT 96–98
--- NOTE | 2024-10-22 00:26 | DVHHP2 ---
History of Present Illness Reason for Visit: Hypertensive emergency History of Present Illness The patient is a 69-year-old female with past medical history of thyroid disease, hypertension, and depression who presented to [facility] ED with complaint of high blood pressure. Patient reports, she had a regular sche duled appointment with her PCP for an eye infection, but was sent to the ED due to elevated SBP in the 200's. Patient relays, that she was taken off her blood pressure medication 3 months ago; has not taken anything for her blood pressure since. Patient was seen and evaluated in the ED, laboratory data shows WBC 7.4, platelets 293, sodium 143, potassium 3.7, BUN 14, creatinine 0.75, glucose 97, calcium 9.6, troponin 11, blood pressure 209/76 trending down to 169/64, heart rate 84, temperature 98.2 F, O2 saturation 96% on room air. Head CT showed no evidence of acute intracranial abnormality. Please see medication orders section in the computer. On my assessment, patient denied chest pain, no headache, no dizziness, no diaphoresis, no nausea, no vomiting, no fever, no chills. Patient was admitted for further evaluation and medical management. Past Medical History Depression, HTN, Thyroid disease Past Surgical History , Hysterectomy Family History Reviewed, noncontributory to the management of this case. Past Social History The patient lives at home, denies smoking, alcohol or illicit drugs abuse. Review of Systems Constitutional: Yes: Weakness; No: Fever, Chills, Sweats, Malaise, Other Eyes: No: Pain, Vision change, Conjunctivae inflammation, Eyelid inflammation, Other, Redness ENT: No: Ear pain, Ear discharge, Nose pain, Nose discharge, Nose congestion, Mouth pain, Mouth swelling, Throat pain, Throat swelling, Other Cardiovascular: Other (Hypertension); No: Chest Pain, Palpitations, Orthopnea, Paroxysmal Noc. Dyspnea, Edema, Lt Headedness Gastrointestinal: No: Nausea, Vomiting, Abdominal Pain, Diarrhea, Constipation, Melena, Hematochezia, Other Genitourinary: No Dysuria, No Frequency, No Incontinence, No Hematuria, No Retention, No Other Musculoskeletal: No: other, neck pain, shoulder pain, arm pain, back pain, hand pain, leg pain, foot pain Skin: No: Rash, Lesions, Jaundice, Bruising, Other Neurological: No: Weakness, Numbness, Incoordination, Change in speech, Confusion, Seizures, Other Allergies: Coded Allergies: NO KNOWN ALLERGIES (Unverified , 10/28/11) Exam Vital Signs Vital Signs Date Time Temp Pulse Resp B/P (MAP) Pulse Ox O2 Delivery O2 Flow Rate FiO2 10/21/24 21:30 98.2 83 16 169/64 (99) 94 98.2 General Appearance: Alert, Oriented X3, Cooperative, No acute distress HEENT: Atraumatic, PERRLA, EOMI, Mucous membr. moist/pink Respiratory: Clear to auscultation, Normal air movement Cardiovascular: Regular rate, Normal S1, Normal S2, No murmurs Abdominal: Normal bowel sounds, Soft, No tenderness, No hepatospenomegaly, No masses Extremities: No clubbing, No cyanosis, No edema, Normal pulses, No tenderness/swelling Skin: No rashes, No breakdown, No significant lesion Neuro: Normal speech, Normal tone, Sensation intact, Cranial nerves 3-12 NL, Reflexes 2+, Other (Generalized weakness) Psych/Mental Status: Mental status NL, Mood NL Labs/Xrays Labs Test 10/21/24 16:16 10/21/24 12:55 Range/Units Troponin I High Sensitivity 11 </=34 ng/L White Blood Count 7.4 4.4-10.8 10^3/uL Red Blood Count 5.02 4.0-5.20 10^6/uL Hemoglobin 15.2 12.2-16.2 g/dL Hematocrit 44.5 36.0-46.0 % Mean Corpuscular Volume 88.7 80.0-100.0 fL Mean Corpuscular Hemoglobin 30.3 28.0-32.0 pg Mean Corpuscular Hemoglobin Concent 34.1 32.0-36.0 g/dL Red Cell Distribution Width 13.7 11.8-14.3 % Platelet Count 293 140-450 10^3/uL Mean Platelet Volume 7.6 6.9-10.8 fL Neutrophils (%) (Auto) 47.6 37.0-80.0 % Lymphocytes (%) (Auto) 39.8 10.0-50.0 % Monocytes (%) (Auto) 8.6 0.0-12.0 % Eosinophils (%) (Auto) 3.1 0.0-7.0 % Basophils (%) (Auto) 0.9 0.0-2.0 % Neutrophils # (Auto) 3.5 1.6-8.6 10 ^3/uL Lymphocytes # (Auto) 2.9 0.4-5.4 10 ^3/uL Monocytes # (Auto) 0.6 0-1.3 10 ^3/uL Eosinophils # (Auto) 0.2 0-0.8 10 ^3/uL Basophils # (Auto) 0.1 0-0.2 10 ^3/uL Nucleated Red Blood Cells 0.1 % Sodium Level 143 136-145 mmol/L Potassium Level 3.7 3.5-5.1 mmol/L Chloride Level 106 98-107 mmol/L Carbon Dioxide Level 29 20-31 mmol/L Anion Gap 8 5-15 Blood Urea Nitrogen 14 9-23 mg/dL Creatinine 0.75 0.550-1.02 mg/dL Glomerular Filtration Rate Calc 87 >90 mL/min BUN/Creatinine Ratio 18.7 10.0-20.0 Serum Glucose 97 74-106 mg/dL Calcium Level 9.6 8.7-10.4 mg/dL PATIENT: AMY HURTADOCT: [id number] UNIT: [id number] : 1955 LOC: ER ROOM / BED: / AGE / SEX: 69 / F ADM STATUS: REG ER SERVICE 1241 ORDERING PHYSICIAN: CHI KRISHNA MD PROCEDURE(s): HWOCT - HEAD WITHOUT CONTRAST REASON: htn ORDER NUMBER(s): [id number], ACCESSION NUMBER(s): [id number] EXAM: CT HEAD WITHOUT CONTRAST INDICATION: htn TECHNIQUE: CT images of the head were obtained without administration of IV contrast. CT scans at this facility use dose modulation, iterative reconstruction, and/or weight based dosing when appropriate to reduce radiation dose to as low as reasonably achievable. COMPARISON: None FINDINGS: PARENCHYMA: No acute hemorrhage. There is no mass effect, midline shift, or herniation. There is preservation of the boss white differentiation. VENTRICLES: No hydrocephalus. EXTRA-AXIAL SPACES: No extra-axial fluid collections. OTHER: The bony structures are intact. Visualized portions of the paranasal sinuses and mastoid air cells are clear. IMPRESSION: 1. No CT evidence of an acute intracranial abnormality. ORDERING PHYSICIAN: CHI KRISHNA MD PROCEDURE(s): CXRP - CHEST PORTABLE REASON: htn ORDER NUMBER(s): [id number], ACCESSION NUMBER(s): [id number] INDICATION: htn TECHNIQUE: Frontal view of the chest. COMPARISON: None FINDINGS: The heart and mediastinal contours are grossly unremarkable. There is no evidence of pleural disease. The lungs are clear. The bony structures of the chest are intact without fracture. IMPRESSION: 1. No evidence of acute disease. SEPSIS Sepsis Screen Date sepsis recognized/suspect: Oct 21, 2024 Time Sepsis recognized/suspect: 1226 Recent Procedure: No On Antibiotic Therapy: No Respiratory Rate >20: No Heart Rate >90: No Temp<36 C (96.8 F) or >38.3 C: No SBP <90 or MAP <65 mmHG: No New Acute Mental Status Change: No Is the patient on CPAP, BIPAP,: No Physician Orders Complete Blood Count (10/22/24 04:00) Comprehensive Metabolic Panel (10/22/24 04:00) Amlodipine Tablet (Norvasc Tablet) (10/22/24 10:00) Losartan Tablet (Cozaar Tablet) (10/22/24 10:00) Hydralazine Injection (Apresoline Inject (10/22/24 00:30) Levothyroxine Tablet (Synthroid Tablet) (10/22/24 06:00) Fluoxetine Capsule (Prozac Capsule) (10/22/24 10:00) Thyroid Stimulating Hormone (10/22/24 04:00) Vital Signs Date Time Temp Pulse Resp B/P (MAP) Pulse Ox O2 Delivery O2 Flow Rate FiO2 10/21/24 21:30 98.2 83 16 169/64 (99) 94 98.2 10/21/24 19:09 98.1 84 21 150/57 (88) 96 98.1 Laboratory Tests Test 10/21/24 12:55 White Blood Count 7.4 10^3/uL (4.4-10.8) Medications Medications Dose Ordered Sig/Jaguar Route Start Time Stop Time Status Last Admin Dose Admin Hydralazine HCl 20 mg ONCE ONCE IV 10/21/24 15:00 10/21/24 15:01 DC 10/21/24 15:16 20 MG Assessment/Plan Assessment/Plan Hypertensive emergency Generalized weakness Plan 1. Admit to telemetry unit 2. Breathing treatment 3. Pain control management 4. Management of fluids and electrolytes 5. Consultation for hospitalist 6. Diagnostic tests head CT 7. DVT prophylaxis-on SCDs 8. Repeat labs CBC, CMP in a.m. 9. Continue with current medical management 10. Treatment plan discussed with patient and RN. Patient verbalized understanding. Plan discussed with: Patient, Other (RN) My Orders Orders - CARLOS WONG DNP Procedure Category Date Status Time Complete Blood Count LAB 10/22/24 Verified 04:00 Comprehensive LAB 10/22/24 Verified Metabolic Panel 04:00 Amlodipine Tablet PHA 10/22/24 Verified (Norvasc Tablet) 10:00 Losartan Tablet PHA 10/22/24 Verified (Cozaar Tablet) 10:00 Hydralazine Injection PHA 10/22/24 Verified (Apresoline Inject 00:30 Levothyroxine Tablet PHA 10/22/24 Verified (Synthroid Tablet) 06:00 Fluoxetine Capsule PHA 10/22/24 Verified (Prozac Capsule) 10:00 Thyroid Stimulating LAB 10/22/24 Verified Hormone 04:00 Problem List: (1) Hypertensive emergency (2) Generalized weakness Date of Service: Oct 22, 2024 Billing Provider: CARLOS WONG DNP Common Visit Codes: [id number] INP/OBS CARE (HIGH) CARLOS WONG DNP Oct 22, 2024 00:26
[2024-10-22] MEDS ORDERED: MORPHINE SULFATE INJ 2 MG/ml SYRG IV PRN (00:30)
[2024-10-22] MEDS ORDERED: DOCUSATE SOD 100 MG CAP PO PRN (00:30)
[2024-10-22] MEDS ORDERED: ONDANSETRON HCL 4 MG/2 ML VIAL IV PRN (00:30)
[2024-10-22] MEDS ORDERED: NITROGLYCERIN 0.4 MG SL TAB SL PRN (00:30)
[2024-10-22] MEDS ORDERED: HYDROcodone-ACET 5/325MG TAB PO PRN (00:30)
[2024-10-22] MEDS: hydrALAZINE HCL 20 MG/ML VL IV PRN (01:24)
[2024-10-22] MEDS: LEVOTHYROXINE SODIUM 25 MCG TAB PO SCH (05:37)
[2024-10-22] MEDS: SODIUM CHLOR 0.9% PF (SALINE LOCK) 10ML VIAL/SYR IV SCH (05:40)
[2024-10-22] MEDS: ACETAMINOPHEN 325 MG TAB PO PRN (08:59)
[2024-10-22 09:21] LABS: Hematocrit 42.1 % (36.0-46.0); Hemoglobin 14.5 g/dL (12.2-16.2); Mean Corpuscular Hemoglobin 30.6 pg (28.0-32.0); Mean Corpuscular Volume 88.9 fL (80.0-100.0); Nucleated Red Blood Cells % 0.1 %
[2024-10-22 09:32] LABS: Alanine Aminotransferase 22 U/L (7-40); Albumin 4.1 g/dL (3.2-4.8); Alkaline Phosphatase 68 U/L (46-116); Anion Gap 12 (5-15); BUN/Creatinine Ratio 13.5 (10.0-20.0); Blood Urea Nitrogen 10 mg/dL (9-23); Calcium 9.3 mg/dL (8.7-10.4); Carbon Dioxide 26 mmol/L (20-31); Chloride 103 mmol/L (98-107); Potassium 3.6 mmol/L (3.5-5.1); Sodium 141 mmol/L (136-145); Total Protein 6.9 g/dL (5.7-8.2)
[2024-10-22 09:39] LABS: Bilirubin, Total 1.4 mg/dL (0.2-1.0); Glucose 156 mg/dL (74-106)
[2024-10-22] MEDS: LOSARTAN POTASSIUM 25 MG TAB PO SCH (09:47)
[2024-10-22] MEDS ORDERED: LOSA-533 PO (12:07)
[2024-10-22] MEDS ORDERED: AMLO1TAB23 PO (12:07)
--- NOTE | 2024-10-22 12:09 | DVHPN2 ---
Reviewed: Care Plan, H&P, Labs, Medications, Previous Orders, Radiology Changes from previous H/P or p: No Changes Eyes: No Pain, No Vision change, No Conjunctivae inflammation, No Eyelid inflammation, No Other, No Redness ENT: No Ear pain, No Ear discharge, No Nose pain, No Nose discharge, No Nose congestion, No Mouth pain, No Mouth swelling, No Throat pain, No Throat swelling, No Other Cardiovascular: No Chest Pain, No Palpitations, No Orthopnea, No Paroxysmal Noc. Dyspnea, No Edema, No Lt Headedness; Other (Hypertension) Gastrointestinal: No Nausea, No Vomiting, No Abdominal Pain, No Diarrhea, No Constipation, No Melena, No Hematochezia, No Other Genitourinary: No Dysuria, No Frequency, No Incontinence, No Hematuria, No Retention, No Other Musculoskeletal: No other, No neck pain, No shoulder pain, No arm pain, No back pain, No hand pain, No leg pain, No foot pain Skin: No Rash, No Lesions, No Jaundice, No Bruising, No Other Objective Vitals Vital Signs Date Time Temp Pulse Resp B/P (MAP) Pulse Ox O2 Delivery O2 Flow Rate FiO2 10/22/24 09:47 123/65 10/22/24 09:00 99.5 75 18 98 99.5 10/22/24 08:00 Room Air* 0 21 Medications Current Medications Medications Dose Ordered Sig/Jaguar Route Start Time Stop Time Status Last Admin Dose Admin Amlodipine Besylate 5 mg DAILY PO 10/22/24 10:00 10/22/24 09:46 5 MG Losartan Potassium 25 mg DAILY PO 10/22/24 10:00 10/22/24 09:47 25 MG Hydralazine HCl 10 mg Q6HP PRN IV 10/22/24 00:30 10/22/24 01:24 10 MG Levothyroxine Sodium 75 mcg QAM@0600 PO 10/22/24 06:00 10/22/24 05:37 75 MCG Fluoxetine HCl 20 mg DAILY PO 10/22/24 10:00 10/22/24 09:47 20 MG Sodium Chloride 10 ml Q8HR IV 10/22/24 06:00 10/22/24 05:40 10 ML Acetaminophen/ Hydrocodone Bitart 1 tab Q4HP PRN PO 10/22/24 00:30 Ondansetron HCl 4 mg Q4HP PRN IV 10/22/24 00:30 Docusate Sodium 100 mg BIDPRN PRN PO 10/22/24 00:30 Acetaminophen 650 mg Q6HP PRN PO 10/22/24 00:30 10/22/24 08:59 650 MG Nitroglycerin 0.4 mg Q5MINP PRN SL 10/22/24 00:30 Morphine Sulfate 2 mg Q30M PRN IV 10/22/24 00:30 Laboratory Results Laboratory Tests 10/22/24 09:00 Chemistry Test 10/21/24 12:55 10/22/24 09:00 Calcium Level 9.6 mg/dL (8.7-10.4) 9.3 mg/dL (8.7-10.4) Albumin 4.1 g/dL (3.2-4.8) Total Protein 6.9 g/dL (5.7-8.2) LFT Test 10/22/24 09:00 Alanine Aminotransferase (ALT) 22 U/L (7-40) Alkaline Phosphatase 68 U/L (46-116) Aspartate Amino Transferase (AST) 27 U/L (13-40) Total Bilirubin 1.4 mg/dL (0.2-1.0) H HgA1c, TSH Test 10/22/24 09:00 Thyroid Stimulating Hormone (TSH) 2.81 uIU/mL (0.55-4.78) Labs and/or images reviewed: Labs reviewed by me, Image(s) reviewed by me Assessment/Plan Assessment/Plan Hypertensive Urgency systolic 190; amlodipine losartan now resolved Depression Hypothyroidism CT head negative All labs were normal Patient was advised and being discharged home New prescription sent to the pharmacy Plan discussed with: Patient Date of Service: Oct 22, 2024 Billing Provider: NAMRATA DAHL MD Common Visit Codes: [id number] INP/OBS CARE(HIGH) NAMRATA DAHL MD Oct 22, 2024 12:09
--- NOTE | 2024-10-22 12:12 | DVHDS2 ---
Discharge Summary Date of Admission Oct 22, 2024 at 00:20 Date of Discharge: Oct 22, 2024 Admitting Diagnosis Hypertensive urgency Wounds: None Labs/Diagnostic Data: Laboratory Results Test 10/22/24 09:00 10/21/24 16:16 White Blood Count 6.9 10^3/uL (4.4-10.8) Red Blood Count 4.74 10^6/uL (4.0-5.20) Hemoglobin 14.5 g/dL (12.2-16.2) Hematocrit 42.1 % (36.0-46.0) Mean Corpuscular Volume 88.9 fL (80.0-100.0) Mean Corpuscular Hemoglobin 30.6 pg (28.0-32.0) Mean Corpuscular Hemoglobin Concent 34.5 g/dL (32.0-36.0) Red Cell Distribution Width 14.1 % (11.8-14.3) Platelet Count 271 10^3/uL (140-450) Mean Platelet Volume 7.8 fL (6.9-10.8) Neutrophils (%) (Auto) 60.4 % (37.0-80.0) Lymphocytes (%) (Auto) 30.0 % (10.0-50.0) Monocytes (%) (Auto) 6.9 % (0.0-12.0) Eosinophils (%) (Auto) 2.4 % (0.0-7.0) Basophils (%) (Auto) 0.3 % (0.0-2.0) Neutrophils # (Auto) 4.2 10 ^3/uL (1.6-8.6) Lymphocytes # (Auto) 2.1 10 ^3/uL (0.4-5.4) Monocytes # (Auto) 0.5 10 ^3/uL (0-1.3) Eosinophils # (Auto) 0.2 10 ^3/uL (0-0.8) Basophils # (Auto) 0 10 ^3/uL (0-0.2) Nucleated Red Blood Cells 0.1 % Sodium Level 141 mmol/L (136-145) Potassium Level 3.6 mmol/L (3.5-5.1) Chloride Level 103 mmol/L (98-107) Carbon Dioxide Level 26 mmol/L (20-31) Anion Gap 12 (5-15) Blood Urea Nitrogen 10 mg/dL (9-23) Creatinine 0.74 mg/dL (0.550-1.02) Glomerular Filtration Rate Calc 89 mL/min (>90) BUN/Creatinine Ratio 13.5 (10.0-20.0) Serum Glucose 156 mg/dL (74-106) Calcium Level 9.3 mg/dL (8.7-10.4) Total Bilirubin 1.4 mg/dL (0.2-1.0) Aspartate Amino Transferase (AST) 27 U/L (13-40) Alanine Aminotransferase (ALT) 22 U/L (7-40) Alkaline Phosphatase 68 U/L (46-116) Total Protein 6.9 g/dL (5.7-8.2) Albumin 4.1 g/dL (3.2-4.8) Thyroid Stimulating Hormone (TSH) 2.81 uIU/mL (0.55-4.78) Troponin I High Sensitivity 11 ng/L (</=34) Other Laboratory Tests 10/22/24 09:00 Brief Hx & Hospital Course: 89-year-old female with a history of hypertension hypothyroidism depression came in for elevated blood pressure systolic 190 up treated with the amlodipine losartan blood pressure came down all labs were normal. Patient's home medications were reviewed. The patient being discharged home prescription for new medications losartan and amlodipine transmitted to the pharmacy. Consults/Reason for consult None Operations or Procedures CT head Condition at Discharge: Fair Final Diagnosis/Problems List Hypertensive Urgency systolic 190; amlodipine losartan Depression Hypothyroidism CT head negative All labs were normal Discharge Disposition: Home Discharge Instruct/Medications Diet: Cardiac 2g Na,low cholest Activity: Light activity Follow Up/Referral: Follow up with your primary Dr Use new medications as prescribed Medications: Amlodipine 10 mg p.o. daily Losartan 25 mg p.o. daily Transmitted to [facility] Scheduled Amlodipine Besylate (Amlodipine Besylate), 1 TAB PO DAILY Amoxicillin & Pot Clavulanate (Augmentin Tablet), 875 MG PO BID Calcium Carbonate-Vitamin D (Calcium 500+D), 500 + OR BID, (Reported) Cefdinir (Cefdinir), 1 CAP PO BID Fluoxetine Hcl (Pmdd) (Fluoxetine), 20 MG OR DAILY, (Reported) Hydrochlorothiazide W/Triamter (Dyazide 37.5/25MG), 1 CAP PO DAILY, (Reported) Levothyroxine Sodium (Synthroid), 75 MCG OR QAM, (Reported) Losartan Potassium (Losartan Potassium), 1 TAB PO DAILY [id number] (Maxitrol 0.1% Opthalmic Suspension), 1 DROP OP BID [Norvasc], 2.5 MG PO DAILY, (Reported) 39 (Time Taken for discharge summary 39 minutes) Discharge Statement: "Patient was advised to return to the ER or call 911 if any headaches, dizziness, shortness of breath, chest pain, abdominal pain, bleeding, fevers, or worsening of medical condition. Patient was counseled about treatment plan, medications, possible side effects, patientverbalized understanding. All questions were answered to the best of my ability. This discharge took greater then 30 minutes in planning, reviewing documentation, counseling the patient, and discussing with other team members." ASSESSMENT ASSESSMENT Hospital Course Improved Assessment Hypertensive Urgency systolic 190; amlodipine losartan Depression Hypothyroidism CT head negative All labs were normal Date of Service: Oct 22, 2024 Billing Provider: NAMRATA DAHL MD Common Visit Codes: 98426-ASS/OBS DISCH DAY >30min NAMRATA DAHL MD Oct 22, 2024 12:12
== END 2024-10-22 14:03 | disposition home or self-care (01) | DRG 305 ==
LOC: ER 12:27 → OVERFLOW 10-22 00:20 → TELE-WESTW 10-22 03:19
PROVIDERS: ADMIT Family Medicine; ATTEND Family Medicine
DX: I16.0 Hypertensive urgency (principal); F32.A Depression, unspecified; E03.9 Hypothyroidism, unspecified; Z79.2 Long term (current) use of antibiotics; Z79.899 Other long term (current) drug therapy; Z98.891 History of uterine scar from previous surgery; Z90.710 Acquired absence of both cervix and uterus; I10 Essential (primary) hypertension
CPT/HCPCS: 36415; 70450; 71045; 80048; 80053; 84443; 84484; 85025; 93005; 96374; 99291; G0378